=== PATIENT | female | born 1930 | race Caucasian/White ===

== ENCOUNTER 2016-10-16 05:16 | Inpatient (IN) | payer OTHER ==
[~2016-10-16] VITALS: Ht 157.5 cm; Wt 69.0 kg
[~2016-10-16 05:16] MED LIST: ALEVE220 M2 PO; ASPIRIN325 MG PO; B COMPLETE1 EACH PO; CALCIUM + D3 E1 EACH PO; CENTRUM SILVER1 EAC3 PO; COCONUT OIL1000 MG PO; FERROUS SULFAT325 MG PO; HYDROCODON-ACE1 EAC7 PO; IRON325 M1 PO; LOVENOX40 MG/0.4 SC; PRAVASTATIN SOD20 MG PO; TRAMADOL HCL50 MG PO; TRIAMTERENE-HC1 EACH PO; VITAMIN D31000 UNIT PO
[2016-10-16] MEDS ORDERED: ASPIRIN325 MG PO (05:45)
[2016-10-16] MEDS ORDERED: ALEVE220 MG PO (05:46)
[2016-10-16 05:48] VITALS: BP 150/72
[2016-10-16 10:28] LABS: HEMATOCRIT 35.4 % (36.0-46.0); MCH 31.1 PG (29.0-34.0); MCHC 32.5 G/DL (30.0-36.0); MCV 95.7 FL (83-99); MEAN PLAT.VOLUME 9.4 uM^3 (9.5-12.4); PLATELET COUNT 228 K/uL (156-360); RBC DIS.WIDTH-CV 13.4 % (11.8-14.6); RBC DIS.WIDTH-SD 47.6 % (39-53); WHITE BLOOD COUNT 7.4 K/uL (4.1-10.2)
[2016-10-16 12:01] VITALS: BP 106/55
[2016-10-16 15:55] VITALS: BP 117/58
[2016-10-16 20:25] VITALS: BP 114/59
[2016-10-17] VITALS (7 sets, daily range): BP systolic 111–128; BP diastolic 56–65
[2016-10-17 07:05] LABS: HEMATOCRIT 31.8 % (36.0-46.0); MCV 93.3 FL (83-99)
[2016-10-17 07:32] LABS: ANION GAP 8 MEQ/L (2-14); CHLORIDE 100 MEQ/L (99-109); GFR ESTIMATE (CALCULATED) > 59 mL/min/; GLUCOSE 130 mg/dL (70-99); POTASSIUM 3.9 MEQ/L (3.7-5.4); SAMPLE HEMOLYSIS CHECK 0; SAMPLE ICTERIC CHECK 0; SAMPLE LIPEMIA CHECK 0; SODIUM 131 MEQ/L (136-147); UREA NITROGEN (BUN) 12 mg/dL (9-23)
[2016-10-18 04:57] VITALS: BP 124/60
[2016-10-18 06:42] LABS: HEMATOCRIT 29.8 % (36.0-46.0); MCV 92.8 FL (83-99)
[2016-10-18 07:08] LABS: ANION GAP 7 MEQ/L (2-14); CHLORIDE 99 MEQ/L (99-109); GFR ESTIMATE (CALCULATED) > 59 mL/min/; GLUCOSE 120 mg/dL (70-99); POTASSIUM 3.9 MEQ/L (3.7-5.4); SAMPLE HEMOLYSIS CHECK 0; SAMPLE ICTERIC CHECK 0; SAMPLE LIPEMIA CHECK 0; SODIUM 130 MEQ/L (136-147); UREA NITROGEN (BUN) 9 mg/dL (9-23)
[2016-10-18 08:00] VITALS: BP 122/80
[2016-10-18] MEDS ORDERED: DOCUSATE SODIU100 MG PO (08:16)
[2016-10-18] MEDS ORDERED: ENDOCET 5-3251 EACH PO (08:16)
[2016-10-18] MEDS ORDERED: LOVENOX40 MG/0.4 SC (08:16)
[2016-10-18 15:26] VITALS: BP 153/71
== END 2016-10-18 15:35 | DRG 470 ==
LOC: 2SOUTH 05:16 → 3WEST 11:34 → 2SOUTH 11:58 → 3WEST 10-18 15:35
PROVIDERS: Orthopaedic Surgery; Physician Assistant
PROC: 0SRD0J9 Replacement of Left Knee Joint with Synthetic Substitute, Cemented, Open Approach (ICD-10-PCS; principal; 2016-10-16)
DX: M17.12 Unilateral primary osteoarthritis, left knee (principal); M25.562 Pain in left knee; I10 Essential (primary) hypertension; E78.00 Pure hypercholesterolemia, unspecified; Z79.899 Other long term (current) drug therapy; Z82.49 Family history of ischemic heart disease and other diseases of the circulatory system
CPT/HCPCS: 71010; 73560; 80048; 85014; 85018; 85027; 86301 90; 93005; C1713; J0690; J1170; J1650; J2250; J2405; J3010; J7050